=== PATIENT | male | born 1995 | race Caucasian/White ===

== ENCOUNTER 2018-09-30 18:38 | Emergency (ER) | payer OTHER, MEDICAID ==
[~2018-09-30] VITALS: Ht 172.7 cm; Wt 81.6 kg
[2018-09-30 18:38] VITALS: BP 131/62
--- NOTE | 2018-09-30 18:38 | NUR ---
PATIENT BIB [facility] TO ER BED 3.
--- NOTE | 2018-09-30 19:00 | NUR ---
BROUGHT IN FOR PREBOOK W C/O R HAND PAIN TO KNUCKLE X 3 DAYS. PT HAS ABRAISON TO KNUCKLE ON R HAND WITH WHITE EXUDATE. DENIES FEVER/N/V/D. SKIN IS PINK/WARM/DRY; AAOX4 WITH EVEN AND STEADY GAIT; VSS; PATIENT POSITIONED FOR COMFORT; HOB ELEVATED; BEDRAILS UP X1; BED DOWN. ER MD MADE AWARE OF PT STATUS. [place] [facility] AT BEDSIDE.
[2018-09-30] MEDS ORDERED: BACITRACIN OINT 500 UNITS/GM PKT TP ONE (19:40)
[2018-09-30] MEDS ORDERED: cefTRIAXone 1,000 MG in LIDOCAINE MPF 1% - 5 mL VIAL 2.1 ML IM ONE (19:40)
--- NOTE | 2018-09-30 19:58 | NUR ---
PATIENT RIGHT HAND TREATED WITH SALINE
[2018-09-30 20:33] VITALS: BP 115/68
--- NOTE | 2018-09-30 20:33 | NUR ---
Patient discharged with v/s stable. Written and verbal after care instructions given and explained. Patient alert, oriented and verbalized understanding of instructions. Ambulatory with in custody. All questions addressed prior to discharge. ID band removed. Patient advised to follow up with PMD. Rx of KEFLEX 500MG TABS given. Patient educated on indication of medication including possible reaction and side effects. Opportunity to ask questions provided and answered.
== END 2018-09-30 20:33 | disposition home or self-care (01) ==
LOC: MED 18:38
DX: L03.113 Cellulitis of right upper limb (principal); A35 Other tetanus; F15.10 Other stimulant abuse, uncomplicated; F17.200 Nicotine dependence, unspecified, uncomplicated; Z59.0 Homelessness; Z85.89 Personal history of malignant neoplasm of other organs and systems
CPT/HCPCS: 73130; 90471; 90715; 96372; 99283; J0696; J2001

== ENCOUNTER 2019-01-20 16:48 | Emergency (ER) | payer OTHER, MEDICAID ==
[~2019-01-20] VITALS: Ht 175.3 cm; Wt 67.8 kg
[2019-01-20 17:00] VITALS: BP 117/80
[2019-01-20 17:15] VITALS: BP_DIAS 80
--- NOTE | 2019-01-20 17:15 | NUR ---
PT PRESENTED TO ED C/O DIARRHEA, ANXIETY WITH INTERMITTENT LEFT CHEST PAIN WITH EPISODES OF TINGLING SENSATION TO LEFT HAND, FOR THE PAST 5 DAYS. PT STATED "I DON'T KNOW IF ITS MY ANXIETY, I RUN OUT OF MEDICINE FOR 3 WEEKS NOW" PT WITH HISTORY OF DEPRESSION, BIPOLAR AND ANXIETY. PT ON SEROQUEL. AAOX4, RR EVEN UNLABORED, PT ABDOMEN FLAT, SOFT, NON-TENDER, BOWEL SOUNDS PRESENT X 4. ED MD DR. DEL ANGEL MADE AWARE, WILL CONTINUE TO MONITOR CLOSELY, BED IN LOWEST POSITION.
--- NOTE | 2019-01-20 18:24 | NUR ---
Note normanone in EDM - 01/20/19 at 2120 by ANDI PATIENT ELOPED FROM FACILITY. SEARCHED ER ROOMS AND BATHROOMS, PT NOT FOUND, LEFT ED WITHOUT SEEING MD. DISCHARGE INSTRUCTIONS NOT GIVEN TO PATIENT. DR. DEL ANGEL NOTIFIED.
--- NOTE | 2019-01-20 18:24 | NUR ---
PATIENT LEFT FACILITY WITHOUT SEEING MD. SEARCHED LOBBY, ER ROOMS AND BATHROOMS, PT NOT FOUND,ED MD DR. DEL ANGEL NOTIFIED.
== END 2019-01-20 18:24 | disposition left against medical advice (07) ==
LOC: MED 16:48
DX: F30.9 Manic episode, unspecified (principal); R19.7 Diarrhea, unspecified; F15.10 Other stimulant abuse, uncomplicated; F41.9 Anxiety disorder, unspecified
CPT/HCPCS: 93005; 99283

== ENCOUNTER 2019-12-23 22:18 | Emergency (ER) | payer MEDICAID, OTHER ==
[~2019-12-23] VITALS: Ht 182.9 cm; Wt 54.4 kg
[2019-12-23 22:28] VITALS: BP 139/86
[2019-12-23] MEDS ORDERED: SULFAMETH/TRIMETH DS 800/160MG 1 TAB PO ONE (22:55)
[2019-12-23] MEDS ORDERED: IBUPROFEN 800 MG TAB PO ONE (22:55)
[2019-12-23] MEDS ORDERED: CEPHALEXIN 500 MG CAP PO ONE (22:55)
[2019-12-23 23:25] VITALS: BP 128/83
== END 2019-12-23 23:26 | disposition home or self-care (01) ==
LOC: MED 22:18
DX: L03.119 Cellulitis of unspecified part of limb (principal); F17.200 Nicotine dependence, unspecified, uncomplicated; F41.9 Anxiety disorder, unspecified; F15.10 Other stimulant abuse, uncomplicated; F32.9 Major depressive disorder, single episode, unspecified; F31.9 Bipolar disorder, unspecified; Z85.9 Personal history of malignant neoplasm, unspecified
CPT/HCPCS: 99284

== ENCOUNTER 2021-04-07 20:45 | Emergency (ER) | payer MEDICAID ==
[~2021-04-07] VITALS: Ht 175.3 cm; Wt 68.0 kg
--- NOTE | 2021-04-07 20:48 | NUR ---
BIBA BLS TO ER BED 5
[2021-04-07 20:50] VITALS: BP 132/92
--- NOTE | 2021-04-07 21:00 | NUR ---
25 Y/O M SHIRIN FROM "STREETS". PT PLACED ON 5150 HOLD FOR DTS. PER [place] [facility] PT FOUND INJECTING HIMSELF WITH DRUGS AND THEN PROCEED TO SLAM HIS HEAD AGAINST THE FLOOR. PT DENIES WANTING TO HARM HIMSELF OR ANYONE ELSE. PT ADMITS TO SNORTING METH "SOMETIME IN THE AFTERNOON." PT REPORTS VISUAL HALLUCATIONS. ABRASION NOTED TO RT EYEBROW WITH DRY BLOOD. 1:[address] ALL ITEMS REMOVED FROM PT POSSESSION. PT PLACED IN GOWN. ALL SAFETY MEASURES IN PLACE. WILL CONTINUE TO MONITOR. MEDHX- BIPOLAR DISORDER, ANXIETY, DEPRESSION NKA RX- NONE Addendum: 04/08/21 at 0030 by [employer] PT STATES "I HAVE BEEN PLACED ON HOLDS BEFORE." MOST RECENT HOLD WAS APPROXIMATELY LESS THAN A WEEK AGO AT [facility]. WHEN ASKED ABOUT METHODS ATTEMPTED OR THOUGHT ABOUT PT STATED " I HAVE TRIED OVERDOSING ON PILLS AND HANGING MYSELF." NO ACTIVE SI AT TIME OF INTEREVIEW.
--- NOTE | 2021-04-07 21:51 | NUR ---
NOVEL PCR AND RAPID COVID COLLECTED. SPECIMENS WALKED TO LAB.
[2021-04-07 22:03] LABS: BASOPHILS # (AUTO) 0.1 K/uL (0.00-0.22); BASOPHILS % (AUTO) 0.7 % (0.0-2.0); EOSINOPHILS # (AUTO) 0.1 K/uL (0-0.4); EOSINOPHILS % (AUTO) 0.7 % (0.0-4.0); HEMATOCRIT 45.3 % (36-52); HEMOGLOBIN 15.8 g/dL (12.0-18.0); LYMPHOCYTES # (AUTO) 1.2 K/uL (2.0-11.5); MEAN CORPUSCULAR HEMOGLOBIN 31 pg (27-31); MEAN CORPUSCULAR HGB CONC 35 g/dL (33-37); MEAN CORPUSCULAR VOLUME 89.7 fL (80-94); MONOCYTES # (AUTO) 0.7 K/uL (0.8-1.0); MONOCYTES % (AUTO) 7.3 % (1.7-9.3); NEUTROPHILS # (AUTO) 7.5 K/uL (1.8-7.7); NEUTROPHILS % (AUTO) 78.3 % (42.2-75.2); PLATELET COUNT (AUTO) 359 K/uL (140-450); RED BLOOD CELL COUNT(AUTO) 5.05 MIL/uL (4.20-6.10); RED CELL DISTRIBUTION WIDTH 13.7 % (11.6-13.7); WHITE BLOOD COUNT (AUTO) 9.6 K/uL (4.8-10.8)
[2021-04-07] MEDS ORDERED: LORazepam 1 MG TAB PO ONE (22:25)
--- NOTE | 2021-04-07 22:30 | NUR ---
PATIENT IN ROOM. SEATED UPRIGHT. 1:[address] ALL NEEDS MET AT THIS TIME. WILL CONTINUE TO MONITOR.
[2021-04-07 22:34] LABS: ALBUMIN 4.3 g/dL (3.4-5.0); ANION GAP 15.4 (8-16); ASPARTATE AMINOTRANSFERASE 40 U/L (15-37); CARBON DIOXIDE 25.7 mmol/L (21-32); CHLORIDE 104 mmol/L (98-107); GFR ARICAN-AMERICAN 115 mL/min (>90); GLUCOSE 108 mg/dL (74-106); POTASSIUM 4.1 mmol/L (3.5-5.1); SODIUM SERUM 141 mmol/L (136-145); UREA NITROGEN, BLOOD 20 mg/dL (7-18)
--- NOTE | 2021-04-07 22:38 | NUR ---
PT AMBULATED TO RESTROOM AT THIS TIME.
[2021-04-07 22:46] LABS: ACETAMINOPHEN < 0.5 ug/ml (10-30); SALICYLATE < 2.8 mg/dL (2.8-20.0)
--- NOTE | 2021-04-07 22:47 | NUR ---
PT UNABLE TO PROVIDE URINE SPECIMEN AT THIS TIME.
--- NOTE | 2021-04-07 23:00 | NUR ---
pt will not remain in his room. pt pacing the floor. pt needs constant reminder to remain in his room. pt guided back to his room.
--- NOTE | 2021-04-07 23:29 | NUR ---
PT REMINDED OF NECESSITY OF URINE SPECIMEN. PO FLUIDS PROVIDED.
--- NOTE | 2021-04-08 | NUR ---
pt will not remain in his room. pt pacing the floor. pt needs constant reminder to remain in his room. pt guided back to his room.
[2021-04-08] MEDS ORDERED: OLANZapine 5 MG ODT PO ONE ×2 (00:05→01:55)
--- NOTE | 2021-04-08 01:00 | NUR ---
PT PROVIDED URINE AT THIS TIME.
--- NOTE | 2021-04-08 01:15 | NUR ---
PT REQUIRES CONSTANT REMINDING TO STAY IN ROOM. PT DIRECTED BACK TO ROOM AT THIS TIME.
[2021-04-08 01:34] LABS: BARBITURATE, URINE NEGATIVE ng/ml (NEG <=200); BENZODIAZEPINE, URINE NEGATIVE ng/mL (NEG <=200); CANNABINOID, URINE POSITIVE ng/mL (NEG <=50); COCAINE, URINE NEGATIVE ng/mL (NEG <=300); OPIATE, URINE NEGATIVE ng/mL (NEG <=2000); PHENCYCLIDINE SCREEN,URINE NEGATIVE ng/mL (NEG <=25)
[2021-04-08] MEDS ORDERED: diphenhydrAMINE 50 MG CAP PO ONE (01:55)
--- NOTE | 2021-04-08 02:42 | NUR ---
PT IN BED, LYING DOWN, QUIET, NO LONGER PACING OR WALKING UP TO NURSES STATION.
--- NOTE | 2021-04-08 04:05 | NUR ---
PT SEEN WITH EYES CLOSED. VISIBLE CHEST RISE AND FALL NOTED. 1:[address] ALL NEEDS MET. WILL CONTINUE TO MONITOR.
--- NOTE | 2021-04-08 06:23 | NUR ---
PT SEEN WITH EYES CLOSED. VISIBLE CHEST RISE AND FALL NOTED. 1:[address] ALL NEEDS MET. WILL CONTINUE TO MONITOR.
--- NOTE | 2021-04-08 07:14 | NUR ---
HANDOFF REPORT GIVEN TO LOC SANCHEZ. TRANSFER OF CARE AT THIS TIME.
--- NOTE | 2021-04-08 12:36 | NUR ---
Patient appears to be resting comfortably in bed. Vital Signs within normal limits. Respirations even and unlabored.
--- NOTE | 2021-04-08 14:08 | NUR ---
PT EATING LUNCH QUIETLY IN BED. 1:[address] WILL CONTINUE TO MONITOR
--- NOTE | 2021-04-08 14:19 | NUR ---
PT SPEAKING WITH TELEPSYCH AT THIS TIME
--- NOTE | 2021-04-08 14:35 | NUR ---
PSYCH STATES PT IS OFF HOLD AT THIS TIME, PT WILL NEED OUT PATIENT FOLLOW UP WITH REHABD AND MEDICAL SERVICES.
--- NOTE | 2021-04-08 15:24 | NUR ---
Packet faxed to all desiganated facilities , At this time there are no beds available , will continue to look for placmement .
[2021-04-08 15:31] VITALS: BP 125/70
--- NOTE | 2021-04-08 15:32 | NUR ---
Patient discharged with v/s stable. Written and verbal after care instructions given and explained. Patient verbalized understanding. Ambulatory with steady gait. All questions addressed prior to discharge. Advised to follow up with PMD.
== END 2021-04-08 15:32 | disposition home or self-care (01) ==
LOC: MED 20:45
DX: S00.81XA Abrasion of other part of head, initial encounter (principal); F15.959 Other stimulant use, unspecified with stimulant-induced psychotic disorder, unspecified; F41.9 Anxiety disorder, unspecified; F32.9 Major depressive disorder, single episode, unspecified; Y33.XXXA Other specified events, undetermined intent, initial encounter; Y93.89 Activity, other specified; Y92.89 Other specified places as the place of occurrence of the external cause; Y99.8 Other external cause status; Z20.822 Contact with and (suspected) exposure to COVID-19
CPT/HCPCS: 80053; 80305; 85025; 87426; 99285; G0480; G0482; Q0163; U0003

== ENCOUNTER 2021-04-14 06:29 | Emergency (ER) | payer MEDICAID ==
[~2021-04-14] VITALS: Ht 175.3 cm; Wt 63.5 kg
[2021-04-14 06:33] VITALS: BP 124/68
--- NOTE | 2021-04-14 06:46 | NUR ---
TO BED AMBULATORY
[2021-04-14] MEDS ORDERED: LORazepam 1 MG TAB PO ONE (06:50)
--- NOTE | 2021-04-14 06:50 | NUR ---
PER DR. BULLARD, HOLD ON ATIVAN UNTIL PT. DRINKS 1 L OF WATER TO DECREASE HR.
--- NOTE | 2021-04-14 07:00 | NUR ---
URINE SAMPLE COLLECTED
--- NOTE | 2021-04-14 07:00 | NUR ---
PT. GIVEN 2 CUPS OF WATER. PT. SWALLOWED WITHOUT ANY DIFFICULTIES. NO NAUSEA/VOMIT.
--- NOTE | 2021-04-14 07:17 | NUR ---
REPORT AND TRANSFER OF CARE ENDORSED TO LOC RASCON.
--- NOTE | 2021-04-14 07:18 | NUR ---
report received from LOC torres for transfer of care
--- NOTE | 2021-04-14 07:29 | NUR ---
xray bedside with patient
--- NOTE | 2021-04-14 07:44 | NUR ---
25 Y MALE WIT C/O OF MEMORY LOSS AND LASPE THAT OCCURED LAST NIGHT. PATIENT STATED "I'M HAVING MEMORY LAPSES" "I DON'T FEEL IN CONTROL OF MY BODY" "I WAS AT A MARKET IN [place] AND THEN I ENDED UP BEHIND THE [employer] AND I DON'T KNOW HOW I GOT THERE." PT ADMITS TO METH USE 8 HOURS AGO. PT DENIES ANY PAIN AT THIS TIME, SOB, CHILLS, CHEST PAIN, OR WEBB AT THIS TIME. PMH: DENIES NKA
--- NOTE | 2021-04-14 08:31 | NUR ---
BLOOD WORK COLLECTED BEDSIDE AND WALKED OVER TO LAB BY EMT
--- NOTE | 2021-04-14 09:02 | NUR ---
Patient appears to be resting comfortably in bed. Vital Signs within normal limits. Respirations even and unlabored.
[2021-04-14 09:21] LABS: ANION GAP 16.1 (8-16); BASOPHILS # (AUTO) 0.1 K/uL (0.00-0.22); BASOPHILS % (AUTO) 0.9 % (0.0-2.0); CARBON DIOXIDE 27.5 mmol/L (21-32); CHLORIDE 105 mmol/L (98-107); CREATININE 0.8 mg/dL (0.6-1.3); EOSINOPHILS % (AUTO) 0.5 % (0.0-4.0); GFR ARICAN-AMERICAN 149 mL/min (>90); GLUCOSE 100 mg/dL (74-106); HEMATOCRIT 44.4 % (36-52); HEMOGLOBIN 15.2 g/dL (12.0-18.0); LYMPHOCYTES # (AUTO) 1.1 K/uL (2.0-11.5); LYMPHOCYTES % (AUTO) 17.1 % (20.5-51.1); MEAN CORPUSCULAR HEMOGLOBIN 31 pg (27-31); MEAN CORPUSCULAR HGB CONC 34 g/dL (33-37); MEAN CORPUSCULAR VOLUME 89.5 fL (80-94); MONOCYTES # (AUTO) 0.4 K/uL (0.8-1.0); MONOCYTES % (AUTO) 7.1 % (1.7-9.3); NEUTROPHILS # (AUTO) 4.6 K/uL (1.8-7.7); NEUTROPHILS % (AUTO) 74.4 % (42.2-75.2); PLATELET COUNT (AUTO) 361 K/uL (140-450); POTASSIUM 3.6 mmol/L (3.5-5.1); RED BLOOD CELL COUNT(AUTO) 4.96 MIL/uL (4.20-6.10); RED CELL DISTRIBUTION WIDTH 13.6 % (11.6-13.7); SODIUM SERUM 145 mmol/L (136-145); UREA NITROGEN, BLOOD 9 mg/dL (7-18); WHITE BLOOD COUNT (AUTO) 6.3 K/uL (4.8-10.8)
[2021-04-14 09:35] LABS: ALBUMIN 4.2 g/dL (3.4-5.0); ASPARTATE AMINOTRANSFERASE 13 U/L (15-37); THYROID STIMULATING HORMONE 1.46 uIU/mL (0.34-3.74); TOTAL BILIRUBIN 0.6 mg/dL (0.0-1.0)
[2021-04-14 09:39] LABS: BARBITURATE, URINE NEGATIVE ng/ml (NEG <=200); BENZODIAZEPINE, URINE NEGATIVE ng/mL (NEG <=200); CANNABINOID, URINE POSITIVE ng/mL (NEG <=50); COCAINE, URINE NEGATIVE ng/mL (NEG <=300)
[2021-04-14 09:40] LABS: OPIATE, URINE NEGATIVE ng/mL (NEG <=2000); PHENCYCLIDINE SCREEN,URINE NEGATIVE ng/mL (NEG <=25)
--- NOTE | 2021-04-14 10:12 | NUR ---
Patient discharged with v/s stable. Written and verbal after care instructions given and explained. Patient verbalized understanding. Ambulatory with steady gait. All questions addressed prior to discharge. Advised to follow up with PMD. PT PROVIDED WITH MENTAL HEATLTH AND SUBSTANCE ABUSE PACKET
== END 2021-04-14 15:30 | disposition home or self-care (01) ==
LOC: MED 06:29
DX: F15.90 Other stimulant use, unspecified, uncomplicated (principal); R41.3 Other amnesia; Z98.890 Other specified postprocedural states
CPT/HCPCS: 36415; 71045; 80053; 80305; 84443; 84484; 85025; 93005; 99285; G0482; Q0092